=== PATIENT | male | born 1975 | race Caucasian/White ===

== ENCOUNTER → 2018-09-18 | Outpatient (CLI) | payer OTHER ==
--- NOTE | 2018-09-18 09:38 | Diagnostic Imaging Report ---
PROCEDURE: MRI lumbar spine. TECHNIQUE: Multiplanar, multisequence MRI of the lumbar spine was performed without contrast. INDICATION: Low back pain, bilateral leg pain greater left. No known discrete injury. COMPARED: 04/04/2011. Lumbar body heights are maintained. The alignment is stable and anatomic. 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 No acute marrow signal abnormality. The conus appeared normal. There is no paravertebral mass, hemorrhage or fluid collection. The partially visualized sacral ala appeared unremarkable. There is normal dispersal of the nerves of the cauda equina. L1-L2: There is disc desiccation and slight stature loss and mild circumferential disc bulge similar in appearance to the prior with disc material posteriorly eccentric to the right, slightly effacing the right ventral thecal sac. The mild degree of right foraminal narrowing is stable. The left foramen widely patent with no compression or displacement of the exiting or descending nerves. No substantial stenosis. L2-L3: Anterior osteophyte disc material at this level without stenosis is stable. L3-L4: This level and disc stable and unremarkable without stenosis. L4-L5: Disc stature loss, disc desiccation and eccentric broad-based posterolateral bulging indenting the left ventral thecal sac and impinging upon the left L5 lateral recess. Disc material effaces the ventral epidural fat and mildly effaces the ventral thecal sac. Canal stenosis is mild. There is mild left foraminal narrowing. Right neural foramen patent. The degree of impingement upon the left lateral recess foramen and canal appeared similar. L5-S1: There is loss of disc stature, disc desiccation and slight circumferential bulge with mild endplate osteophytes but no substantial degree of canal, foraminal or recess stenosis. IMPRESSION: 1. Normal alignment. No acute bony abnormality. Degenerative changes greatest at L4-L5 where there is eccentric broad-based disc bulge with left lateral recess stenosis and mild canal and left foraminal stenosis similar in magnitude to prior. 2. No acute-appearing abnormality. Dictated by: Dictated on workstation # [id number]
== END ==
LOC: RAD 07:46
PROVIDERS: ATTEND Internal Medicine
DX: M47.816 Spondylosis without myelopathy or radiculopathy, lumbar region (principal); M51.26 Other intervertebral disc displacement, lumbar region; M48.061 Spinal stenosis, lumbar region without neurogenic claudication
CPT/HCPCS: 72148

== ENCOUNTER → 2020-04-06 | Outpatient (CLI) | payer OTHER ==
--- NOTE | 2020-04-06 10:19 | Diagnostic Imaging Report ---
INDICATION: Bilateral hand tingling. Time of exam 9:45 AM Curvature and alignment is normal. Vertebral body heights and disc spaces are well-maintained. No fracture or subluxation is seen. The odontoid is intact. IMPRESSION: No acute bony abnormality is detected. Dictated by: Dictated on workstation # [id number]
--- NOTE | 2020-04-06 10:36 | Diagnostic Imaging Report ---
INDICATION: Bilateral hand tingling. Time of exam 9:51 AM Multiple views bilateral hands were obtained. Metacarpals and phalanges are unremarkable bilaterally. Joint spaces are maintained. No osseous erosions are seen. No fractures are identified. Carpus is unremarkable bilaterally. IMPRESSION: Unremarkable bilateral hand radiograph. Dictated by: Dictated on workstation # [id number]
== END ==
LOC: RAD 09:22
PROVIDERS: ATTEND Internal Medicine
DX: M19.90 Unspecified osteoarthritis, unspecified site (principal); R20.2 Paresthesia of skin
CPT/HCPCS: 72050

== ENCOUNTER → 2021-08-30 | Outpatient (CLI) | payer OTHER ==
[~2021-08-30] VITALS: Ht 175 cm; Wt 97.7 kg
[~2021-08-30] MED LIST: ACETAMINOPHEN 500 MG TAB (TYLENOL) PO PRN; CASIRIVIMAB/IMDEVIMAB 1,200 MG in NS (IVPB) 250 ML IV ONE; EPINEPHrine INJECTION 1 MG/ML AMP IM PRN; ONDANSETRON 4 MG/2 ML (SDV) Z0FRAN IV PRN; diphenhydrAMINE 50 MG/ML INJ (BENADRYL) IV PRN
[2021-08-30 10:23] VITALS: BP 148/96
[2021-08-30 12:11] VITALS: BP 143/103
== END ==
LOC: INFUSION 09:53
PROVIDERS: ATTEND Internal Medicine
DX: U07.1 COVID-19 (principal)

== ENCOUNTER → 2023-06-18 | Outpatient (CLI) | payer OTHER ==
--- NOTE | 2023-06-18 15:06 | Diagnostic Imaging Report ---
PROCEDURE: CT abdomen and pelvis without contrast. TECHNIQUE: Multiple contiguous axial images were obtained through the abdomen and pelvis without the use of intravenous contrast. Auto Exposure Controls were utilized during the CT exam to meet ALARA standards for radiation dose reduction. INDICATION: Mid and upper abdominal pain and diarrhea. COMPARISON: No prior studies are available for comparison. The lung bases are clear. The liver and gallbladder are unremarkable. There is no biliary ductal dilatation. Pancreas and spleen are unremarkable. No adrenal mass is detected. No renal or ureteral calculi are seen. There is no hydronephrosis. Aorta is nonaneurysmal. There is a long segment of significant wall thickening and surrounding inflammatory stranding involving the distal small bowel. This appears to involve the terminal ileum. There also appears to be some free fluid in the right lower quadrant and right pelvis but no well-formed fluid collection or abscess is identified. There is no free air. Colon is normal caliber. The bladder and prostate are unremarkable. IMPRESSION: Long segment of significance circumferential wall thickening of the terminal ileum with surrounding inflammation and surrounding free fluid. Findings are consistent with enteritis. Inflammatory bowel disease, such as Crohn's disease, cannot entirely be excluded. There is no bowel obstruction or abscess formation. Dictated by: Dictated on workstation # [id number]
== END ==
LOC: RAD 14:43
PROVIDERS: ATTEND Registered Nurse Critical Care Medicine
DX: K59.1 Functional diarrhea (principal); R14.0 Abdominal distension (gaseous); R10.83 Colic; M51.26 Other intervertebral disc displacement, lumbar region; A08.39 Other viral enteritis
CPT/HCPCS: 74176

== ENCOUNTER → 2023-08-11 | Outpatient (CLI) | payer OTHER ==
--- NOTE | 2023-08-11 18:06 | Diagnostic Imaging Report ---
PROCEDURE: US Scrotum. TECHNIQUE: Multiple real-time grayscale images were obtained over the scrotum in various projections bilaterally. INDICATION: Palpable abnormality in the right scrotum. Right and left testes measure 5.3 x 2.2 x 3.0 cm and 2.5 x 3.9 x 3.2 cm, respectively. There is blood flow to both testes. Small amount of physiologic fluid is seen in the scrotum. There is an approximately 1.1 cm cyst in the head of the right epididymis without internal blood flow. There is mild left varicocele which increases in prominence with Valsalva maneuver. IMPRESSION: 1.1 cm right epididymal cyst and mild left varicocele. Clinical correlation with palpable abnormality is recommended. There is no evidence of discrete testicular mass or torsion. Dictated by: Dictated on workstation # [id number]
== END ==
LOC: RAD 15:15
PROVIDERS: ATTEND Internal Medicine
DX: N50.3 Cyst of epididymis (principal); I86.1 Scrotal varices; N50.89 Other specified disorders of the male genital organs
CPT/HCPCS: 76870